=== PATIENT | female | born 1975 | race Caucasian/White ===

== ENCOUNTER → 2017-07-08 | Outpatient (CLI) | payer BC ==
[~2017-07-08] MED LIST: DOXYCYCLINE100 M2 PO; HYDROCODONE BIT1 T11 PO; IMITREX100 MG; MELATONIN1 M1; TOPAMAX100 MG; ZOLOFT50 MG; [UNRECOGNIZED DRUG - OTHER]
[2017-07-08 08:59] LABS: BILIRUBIN NEGATIVE (NEGATIVE); BLOOD 1+ (NEGATIVE); CLARITY SL CLOUDY (CLEAR); COLOR YELLOW (YELLOW); GLUCOSE NEGATIVE (NEGATIVE); KETONE NEGATIVE (NEGATIVE); LEUKO ESTERASE NEGATIVE (NEGATIVE); NITRITE NEGATIVE (NEGATIVE); PH 5.5 (5.0-9.0); SPECIFIC GRAVITY 1.025 (1.005-1.030); UROBILINOGEN 0.2 E.U./dl (0.2-1.0)
[2017-07-08 09:05] LABS: BASO # 0.1 10*3/uL (0.0-0.1); EOS # 0.3 10*3/uL (0.0-0.4); EOS % 5.5 % (1.0-4.0); HEMATOCRIT 39.6 % (37.0-47.0); HEMOGLOBIN 12.9 g/dl (12.0-16.0); LYMPH # 1.3 10*3/uL (1.3-4.4); LYMPH % 23.1 % (27.0-41.0); MEAN CELL VOLUME 84.8 fl (81.0-99.0); MEAN CORPUSCULAR HGB 27.6 pg (27.0-31.0); MEAN CORPUSCULAR HGB CONC 32.6 g/dl (33.0-37.0); MEAN PLATELET VOLUME 9.8 fl (9.6-12.3); MONO # 0.5 10*3/uL (0.1-1.0); MONO % 7.8 % (3.0-9.0); NEUT # 3.6 10*3/uL (2.3-7.9); NEUT % 62.4 % (47.0-73.0); PLATELET COUNT AUTOMATED 271 10*3/uL (130-400); RED BLOOD COUNT 4.67 10*6/uL (4.10-5.10); RED CELL DISTRI WIDTH 13.4 % (0-14.5); WHITE BLOOD COUNT 5.8 10*3/uL (4.8-10.8)
[2017-07-08 09:07] LABS: BACTERIA 1+; EPITHELIAL CELLS 21-30; RBC 16-20 rbc/hpf (0-2)
[2017-07-08 09:24] LABS: ALBUMIN 4.1 gm/dl (3.1-4.5); BUN 19 mg/dl (7-24); CHLORIDE 109 mmol/L (98-107); MAGNESIUM 2.4 mg/dL (1.5-2.1); PHOSPHOROUS 2.6 mg/dL (2.5-4.9); SODIUM 141 mmol/L (136-145)
[2017-07-08 10:04] LABS: PTH INTACT 26.8 pg/mL (14.0-72.0); VITAMIN D, 25-HYDROXY 34.5 ng/mL (30-100)
== END | disposition home or self-care (01) ==
LOC: LAB 08:16
PROVIDERS: Internal Medicine Nephrology
DX: N18.2 Chronic kidney disease, stage 2 (mild) (principal); E55.9 Vitamin D deficiency, unspecified

== ENCOUNTER → 2020-05-12 | Outpatient (CLI) | payer OTHER | END | disposition home or self-care (01) | LOC: CT 10:54 | DX: G43.909 Migraine, unspecified, not intractable, without status migrainosus (principal); R41.3 Other amnesia ==

== ENCOUNTER 2021-07-08 09:55 | Emergency (ER) | payer OTHER ==
[~2021-07-08] VITALS: Ht 165.1 cm; Wt 68.0 kg
[2021-07-08 10:00] VITALS: BP 148/82
== END 2021-07-08 11:15 | disposition left against medical advice (07) ==
LOC: ED 09:55
DX: M54.2 Cervicalgia (principal); R42 Dizziness and giddiness; Z53.21 Procedure and treatment not carried out due to patient leaving prior to being seen by health care provider

== ENCOUNTER → 2021-07-08 | Outpatient (CLI) | payer OTHER ==
[2021-07-08 16:42] LABS: BUN 19 mg/dl (7-24); CHLORIDE 108 mmol/L (98-107); CREATININE 1.13 mg/dL (0.55-1.02); POTASSIUM 3.7 mmol/L (3.5-5.1); SODIUM 140 mmol/L (136-145)
== END | disposition home or self-care (01) ==
LOC: LAB 15:59 → CT 15:59
PROVIDERS: ATTEND Nurse Practitioner Primary Care
DX: R00.0 Tachycardia, unspecified (principal); R07.89 Other chest pain; R06.02 Shortness of breath; R94.31 Abnormal electrocardiogram [ECG] [EKG]